=== PATIENT | female | born 2000 | race Hispanic/Latino ===

== ENCOUNTER 2020-08-11 21:10 | Emergency (ER) | payer OTHER ==
[2020-08-11 22:48] LABS: Urine Blood 3+ (NEG); Urine Glucose NEGATIVE (NEG); Urine Protein 1+ (NEG); Urine Specific Gravity >1.030 (1.005-1.030); Urine pH 5.5 (5.0-7.0)
--- NOTE | 2020-08-11 23:06 | ER ---
Nurse's Notes [facility] Name: Mari Do Age: 20 yrs Sex: Female : 2000 Arrival Date: 08/11/2020 Time: 21:11 Bed 15 Private MD: Diagnosis: Threatened ;11 weeks gestation of Presentation: 08/11 21:16 Chief complaint: Patient states: Bright red vaginal bleeding for 10 min [employer]. No pain. ll1 No N/V/D. LMP: May 19. Approximately 11 weeks . G1, P0. Coronavirus screen: Client denies travel out of the [place] in the last 14 days. At this time, the client does not indicate any symptoms associated with coronavirus-19. Ebola Screen: Patient denies travel to an Ebola-affected area in the 21 days before illness onset. Initial Sepsis Screen: Does the patient meet any 2 criteria? HR > 90 bpm. No. Patient's initial sepsis screen is negative. Does the patient have a suspected source of infection? Yes: Acute abdominal pain Other: vaginal bleeding. Risk Assessment: Do you want to hurt yourself or someone else? Patient reports no desire to harm self or others. Onset of symptoms was August 11, 2020. 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 - Social history:: Smoking status: Patient denies any tobacco usage or history of. Vital Signs: 21:16 BP 134 / 86; Pulse 110; Resp 18; Temp 97.0; Pulse Ox 100% ; Weight 90.26 kg; Height 5 ll1 ft. 1 in. (154.94 cm); Pain 0/10; 21:16 Body Mass Index 37.60 (90.26 kg, 154.94 cm) ll1 ED Course: 21:11 Patient arrived in ED. cl3 21:18 Triage completed. ll1 21:18 Arm band placed on. ll1 22:27 Ultrasound completed. Patient tolerated well. Patient taken to ultrasound. via is wheelchair. 22:27 Patient taken to lobby, Patient moved back from ultrasound. is 22:35 Matter Eval Tm 1 In Process Unspecified. EDMS 22:56 Cherelle Pitts FNP-C [facility]. kb 22:56 Max Weston MD is Attending Physician. kb Administered Medications: No medications were administered Outcome: 23:05 Discharge ordered by . kb 23:20 Patient left the ED. jp3 Signatures: Dispatcher [employer] EDMS Cherelle Pitts FNP-C FNP-CkBob Lei jp3 Ashok Moore cl3 Ricarda, Aliyah is Sharif Moore RN RN ll1
--- NOTE | 2020-08-11 23:06 | EDPHYS ---
Physician Documentation [facility] Name: Mari Do Age: 20 yrs Sex: Female : 2000 Arrival Date: 08/11/2020 Time: 21:11 Bed 15 Private MD: ED Physician Max Weston HPI: 08/11 23:30 This 20 yrs old Female presents to ER via Ambulatory with complaints of kb Vaginal Bleeding, + Preg <12wks. 23:30 The patient presents to the emergency department with vaginal bleeding, that is light. kb The estimated gestational age is 11 weeks. course: care: at a clinic, Leakage of Fluid: none appreciated, Ultrasound: the patient had an ultrasound, Risk/complications: no obvious risks or complications are appreciated. Previous pregnancies: the patient has never been . Associated signs and symptoms: Pertinent positives: vaginal bleeding, Pertinent negatives: abdominal pain. The patient has not experienced similar symptoms in the past. The patient has not recently seen a physician. 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 - Social history:: Smoking status: Patient denies any tobacco usage or history of. ROS: 23:30 Constitutional: Negative for fever, chills, and weight loss, Cardiovascular: Negative kb for chest pain, palpitations, and edema, Respiratory: Negative for shortness of breath, cough, wheezing, and pleuritic chest pain, Abdomen/GI: Negative for abdominal pain, nausea, vomiting, diarrhea, and constipation, Back: Negative for injury and pain, MS/Extremity: Negative for injury and deformity, Skin: Negative for injury, rash, and discoloration, Neuro: Negative for headache, weakness, numbness, tingling, and seizure. 23:30 : Positive for vaginal bleeding. Exam: 23:30 Constitutional: This is a well developed, well nourished patient who is awake, alert, kb and in no acute distress. Head/Face: Normocephalic, atraumatic. Chest/axilla: Normal chest wall appearance and motion. Nontender with no deformity. No lesions are appreciated. Cardiovascular: Regular rate and rhythm with a normal S1 and S2. No gallops, murmurs, or rubs. Normal PMI, no JVD. No pulse deficits. Respiratory: Lungs have equal breath sounds bilaterally, clear to auscultation and percussion. No rales, rhonchi or wheezes noted. No increased work of breathing, no retractions or nasal flaring. Abdomen/GI: Soft, non-tender, with normal bowel sounds. No distension or tympany. No guarding or rebound. No evidence of tenderness throughout. Skin: Warm, dry with normal turgor. Normal color with no rashes, no lesions, and no evidence of cellulitis. MS/ Extremity: Pulses equal, no cyanosis. Neurovascular intact. Full, normal range of motion. Neuro: Awake and alert, GCS 15, oriented to person, place, time, and situation. Cranial nerves II-XII grossly intact. Motor strength 5/5 in all extremities. Sensory grossly intact. Cerebellar exam normal. Normal gait. Vital Signs: 21:16 BP 134 / 86; Pulse 110; Resp 18; Temp 97.0; Pulse Ox 100% ; Weight 90.26 kg; Height 5 ll1 ft. 1 in. (154.94 cm); Pain 0/10; 21:16 Body Mass Index 37.60 (90.26 kg, 154.94 cm) ll1 MDM: 22:56 Patient medically screened. kb 23:04 Data reviewed: vital signs, nurses notes. Data interpreted: Pulse oximetry: on room air kb is 100 %. Interpretation: normal. Counseling: I had a detailed discussion with the patient and/or guardian regarding: the historical points, exam findings, and any diagnostic results supporting the discharge/admit diagnosis, lab results, radiology results, the need for outpatient follow up, an OB/Gyne specialist, to return to the emergency department if symptoms worsen or persist or if there are any questions or concerns that arise at home. ED course: I viewed pt's recently labs on MyChart from her OB. Pt is O positive. Will discharge home to follow up with OB. Pt will return for any concerns. . 08/11 22:31 Order name: Urine Dipstick--Ancillary (enter results); Complete Time: 22:56 mw2 08/11 22:31 Order name: Urine --Ancillary (enter results); Complete Time: 22:56 mw2 08/11 21:30 Order name: Urine Test (obtain specimen); Complete Time: 23:00 kb 08/11 21:30 Order name: Urine Dipstick-Ancillary (obtain specimen); Complete Time: 23:00 kb 08/11 22:35 Order name: Matter Eval Tm 1 EDMS 08/11 22:56 Order name: IV Saline Lock kb 08/11 22:56 Order name: Labs collected and sent kb 08/11 22:56 Order name: NPO Administered Medications: No medications were administered Disposition: 08/11/20 23:05 Discharged to Home. Impression: Threatened , 11 weeks gestation of . - Condition is Stable. - Discharge Instructions: Vaginal Bleeding During , First Trimester, First Trimester of , [id number], Threatened Miscarriage, [id number]. - Medication Reconciliation Form, Thank You Letter, Antibiotic Education, Prescription Opioid Use form. - Follow up: Emergency Department; When: As needed; Reason: Worsening of condition. Follow up: Private Physician; When: 2 - 3 days; Reason: Recheck today's complaints, Continuance of care, Re-evaluation by your physician. Addendum: 08/13/2020 19:54 Co-signature as Attending Physician, Max Weston MD I agree with the assessment and c potter plan of care. Signatures: Dispatcher [employer] EDCherelle Bryson, HISTOTECHNICIAN-C HISTOTECHNICIAN-Ckb Max Weston MD MD cha Pisarski, Jacob jp3 Sharif Moore RN RN ll1 Corrections: (The following items were deleted from the chart) 08/11 22:35 21:31 Transvaginal Ob+US.RAD.BRZ ordered. EDMS EDMS 23:13 22:57 QUANTITATIVE HCG+C.LAB.BRZ ordered. EDMS EDMS 23:13 22:57 ABO/RH TYPING+BB.LAB.BRZ ordered. EDMS EDMS 23:13 22:57 BASIC METABOLIC PANEL+C.LAB.BRZ ordered. EDMS EDMS 23:13 22:57 CBC+H.LAB.BRZ ordered. EDMS EDMS 23:20 23:05 08/11/2020 23:05 Discharged to Home. Impression: Threatened ; 11 weeks jp3 gestation of . Condition is Stable. Forms are Medication Reconciliation Form, Thank You Letter, Antibiotic Education, Prescription Opioid Use. Follow up: Emergency Department; When: As needed; Reason: Worsening of condition. Follow up: Private Physician; When: 2 - 3 days; Reason: Recheck today's complaints, Continuance of care, Re-evaluation by your physician. kb 23:41 23:30 1, 0, Living 0, LMP 06/18/2020 kb kb
--- NOTE | 2020-08-12 09:42 | RAD REPORT ---
EXAM DESCRIPTION: US - Matter Maryal Tm 1 - 08/11/2020 10:29 pm CLINICAL HISTORY: , vaginal bleeding Preliminary findings provided at time of the study. COMPARISON: None. FINDINGS: Single intrauterine gestation is identified within a normal shaped gestational sac. Heart rate is 166 bpm. A small 1 cm size subchorionic hemorrhages present not significant at that size. 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 MARIAJOSE is 02/27/2023. No suspicion for placent al abnormality. Cervical canal is long and closed. No internal os abnormality seen. Left ovary is identified with normal blood flow in the ovarian stroma. No left adnexal mass. Nonvisua lization of the right ovary due to prominent bowel. No right adnexal mass. No blood or fluid in the c ul de sac. IMPRESSION: Single 11 W 3 D intrauterine gestation. MARIAJOSE is 02/27/2023. Normal heart rate seen. No significant subchorionic bleed and no cervical canal abnormality seen.
== END 2020-08-11 23:20 | disposition home or self-care (01) ==
LOC: ER 21:10
DX: O20.0 Threatened abortion (principal); Z3A.11 11 weeks gestation of pregnancy
CPT/HCPCS: 76801; 81003; 81025; 99284